=== PATIENT | female | born 1960 | race Caucasian/White ===

== ENCOUNTER 2025-03-24 22:45 | Emergency (ER) | payer OTHER ==
[~2025-03-24] VITALS: Ht 157.5 cm; Wt 58.5 kg
[2025-03-24] MEDS: TETANUS/DIPHTHERIA TOX ADULT 0.5 ML SYR IM ONE (23:19)
[2025-03-25 00:45] VITALS: PULSE 69; RESP 18; TEMP 97.8
[2025-03-25 00:50] VITALS: BP 127/68; PULSE 69; RESP 18; TEMP 97.8; O2SAT 98
== END 2025-03-25 00:53 | disposition home or self-care (01) ==
LOC: FSED 22:50
DX: S01.01XA Laceration without foreign body of scalp, initial encounter (principal); S16.1XXA Strain of muscle, fascia and tendon at neck level, initial encounter; W01.198A Fall on same level from slipping, tripping and stumbling with subsequent striking against other object, initial encounter; Y93.01 Activity, walking, marching and hiking; Y92.254 Theater (live) as the place of occurrence of the external cause
CPT/HCPCS: 70450; 72125; 90471; 90714; 96372; 99284